=== PATIENT | female | born 1995 | race Caucasian/White ===

== ENCOUNTER 2016-10-18 05:13 | Emergency (ER) | payer OTHER ==
[~2016-10-18] VITALS: Ht 165.1 cm; Wt 89.4 kg
[2016-10-18 05:19] VITALS: BP 114/79
[2016-10-18] MEDS ORDERED: AZIT500T2 PO (05:38)
[2016-10-18] MEDS ORDERED: DEXAMETHASONE 4 MG/ML, 1ML PO ONE (06:00)
[2016-10-18] MEDS ORDERED: DEXAMETHASONE 4 MG TABLET ONE (06:26)
== END 2016-10-18 06:34 | disposition home or self-care (01) ==
LOC: ED 06:28
DX: B34.9 Viral infection, unspecified (principal)
CPT/HCPCS: 93005; 99283; J1100

== ENCOUNTER 2016-10-22 05:09 | Emergency (ER) | payer OTHER ==
[~2016-10-22] VITALS: Ht 165.1 cm; Wt 98.4 kg
[~2016-10-22 05:09] MED LIST: AZIT500T2 PO
[2016-10-22 05:10] VITALS: BP 111/77
== END 2016-10-22 06:30 | disposition home or self-care (01) ==
LOC: ED 06:21
DX: H65.03 Acute serous otitis media, bilateral (principal)
CPT/HCPCS: 70480; 99284

== ENCOUNTER 2017-04-11 20:09 | Outpatient (CLI) | payer OTHER ==
[~2017-04-11] VITALS: Ht 167.6 cm; Wt 94.0 kg
== END 2017-04-11 21:10 | disposition home or self-care (01) ==
LOC: LDOP 20:09
PROVIDERS: ATTEND Student in an Organized Health Care Education/Training Program
DX: O26.892 Other specified pregnancy related conditions, second trimester (principal); O99.342 Other mental disorders complicating pregnancy, second trimester; R10.9 Unspecified abdominal pain; G43.909 Migraine, unspecified, not intractable, without status migrainosus; F32.9 Major depressive disorder, single episode, unspecified; F41.9 Anxiety disorder, unspecified; Z3A.23 23 weeks gestation of pregnancy
CPT/HCPCS: 59025; 99211; G0463

== ENCOUNTER 2017-06-04 17:16 | Outpatient (CLI) | payer OTHER ==
[~2017-06-04] VITALS: Ht 167.6 cm; Wt 97.7 kg
[2017-06-04] MEDS ORDERED: LACTATED RINGERS 1,000 ML IV SCH (18:00)
[2017-06-04] MEDS ORDERED: ONDANSETRON 2MG/ML, 2ML IVPush PRN (18:00)
[2017-06-04] MEDS ORDERED: LACTATED RINGERS 1,000 ML IVBOLUS ONE (18:00)
[2017-06-04 18:39] VITALS: BP 115/62
[2017-06-04 18:54] LABS: MICROSCOPIC INDICATED
[2017-06-04 19:05] LABS: RAPID INFLUENZA A Negative (Negative); RAPID INFLUENZA B Negative (Negative)
== END 2017-06-04 20:50 | disposition home or self-care (01) ==
LOC: LDOP 17:16
PROVIDERS: ATTEND Student in an Organized Health Care Education/Training Program
DX: O26.893 Other specified pregnancy related conditions, third trimester (principal); R10.9 Unspecified abdominal pain; Z3A.32 32 weeks gestation of pregnancy
CPT/HCPCS: 36415; 59025; 81001; 82731; 87086; 87400; 96360; 96361; 99211; J7120; G0463

== ENCOUNTER 2017-07-13 19:24 | Outpatient (CLI) | payer OTHER ==
[~2017-07-13] VITALS: Ht 167.6 cm; Wt 100.9 kg
[~2017-07-13 19:24] MED LIST changes: +FAMO20TA7 PO; +PREN1TAB60 PO
[2017-07-13 19:32] VITALS: BP 115/80
[2017-07-13 20:10] LABS: MICROSCOPIC INDICATED
== END 2017-07-13 20:34 | disposition home or self-care (01) ==
LOC: LDOP 19:24
PROVIDERS: ATTEND Student in an Organized Health Care Education/Training Program
DX: O26.893 Other specified pregnancy related conditions, third trimester (principal); R10.9 Unspecified abdominal pain; Z3A.37 37 weeks gestation of pregnancy
CPT/HCPCS: 59025; 81001; 87086; 89060; 99211; G0463; Q0114

== ENCOUNTER 2017-07-18 20:50 | Outpatient (CLI) | payer OTHER ==
[~2017-07-18] VITALS: Ht 167.6 cm; Wt 104.1 kg
[2017-07-18] MEDS ORDERED: HYDROcodone/APAP 10/325 MG TABLET ONE (22:03)
[2017-07-18] MEDS ORDERED: HYDROcodone/APAP 10/325 MG TABLET PO ONE (22:30)
== END 2017-07-18 22:06 | disposition home or self-care (01) ==
LOC: LDOP 20:50
PROVIDERS: ATTEND Student in an Organized Health Care Education/Training Program
DX: O26.893 Other specified pregnancy related conditions, third trimester (principal); R10.9 Unspecified abdominal pain; Z3A.37 37 weeks gestation of pregnancy
CPT/HCPCS: 59025; 99211; G0463

== ENCOUNTER 2017-07-19 18:04 | Outpatient (CLI) | payer OTHER ==
[~2017-07-19] VITALS: Ht 167.6 cm; Wt 104.1 kg
[2017-07-19 18:19] VITALS: BP 118/72
[2017-07-19] MEDS ORDERED: HYDROcodone/APAP 10/325 MG TABLET PO ONE (19:00)
[2017-07-19] MEDS ORDERED: HYDROcodone/APAP 10/325 MG TABLET ONE (20:05)
== END 2017-07-19 20:45 | disposition home or self-care (01) ==
LOC: LDOP 18:04
PROVIDERS: ATTEND Student in an Organized Health Care Education/Training Program
DX: O62.9 Abnormality of forces of labor, unspecified (principal); Z3A.37 37 weeks gestation of pregnancy
CPT/HCPCS: 59025; 99211; G0463

== ENCOUNTER 2017-07-21 22:47 | Outpatient (CLI) | payer OTHER ==
[~2017-07-21] VITALS: Ht 167.6 cm; Wt 104.0 kg
== END 2017-07-22 01:01 | disposition home or self-care (01) ==
LOC: LDOP 22:47
PROVIDERS: ATTEND Student in an Organized Health Care Education/Training Program
DX: O26.893 Other specified pregnancy related conditions, third trimester (principal); R10.9 Unspecified abdominal pain; Z3A.37 37 weeks gestation of pregnancy
CPT/HCPCS: 59025; 99211; G0463

== ENCOUNTER 2017-07-26 14:25 | Outpatient (CLI) | payer OTHER ==
[~2017-07-26] VITALS: Ht 167.6 cm; Wt 103.0 kg
[2017-07-26 14:36] VITALS: BP 120/67
[2017-07-26 15:31] LABS: MICROSCOPIC INDICATED
== END 2017-07-26 16:00 | disposition home or self-care (01) ==
LOC: LDOP 14:25
PROVIDERS: ATTEND Student in an Organized Health Care Education/Training Program
DX: O26.893 Other specified pregnancy related conditions, third trimester (principal); R10.9 Unspecified abdominal pain; Z3A.00 Weeks of gestation of pregnancy not specified
CPT/HCPCS: 59025; 81001; 87086; 99211; G0463

== ENCOUNTER 2017-07-28 13:51 | Inpatient (IN) | payer OTHER, MEDICAID ==
[~2017-07-28] VITALS: Ht 167.6 cm; Wt 103.1 kg
[2017-07-28] MEDS ORDERED: D5%-LACTATED RINGERS 1,000 ML IV SCH (14:22)
[2017-07-28] MEDS ORDERED: OXYTOCIN 30U/ 0.9% NaCL 500ML 500 ML IV ONE (14:22)
[2017-07-28] MEDS ORDERED: ONDANSETRON 2MG/ML, 2ML IVPush PRN (14:30)
[2017-07-28] MEDS ORDERED: FENTANYL PF 100 MCG/2ML IV PRN (14:30)
[2017-07-28] MEDS ORDERED: SODIUM CITRATE/CITRIC ACID 30 ML UDC PO PRN (14:30)
[2017-07-28] MEDS ORDERED: FENTANYL PF 100 MCG/2ML IVPush PRN (14:30)
[2017-07-28] MEDS ORDERED: MISOPROSTOL 200 MCG TABLET ONE (14:50)
[2017-07-28] MEDS ORDERED: NEWBORN KIT ONE (14:50)
[2017-07-28] MEDS ORDERED: LIDOCAINE 1%, 20ML ONE (14:50)
[2017-07-28] MEDS ORDERED: OXYTOCIN 30U/ 0.9% NaCL 500ML 500 ML ONE (14:50)
[2017-07-28 14:52] LABS: BASOPHILS # (AUTO) 0.03 x10^3/uL (0-0.1); BASOPHILS % (AUTO) 0 % (0-1); EOSINOPHILS # (AUTO) 0.01 x10^3/uL (0-0.4); EOSINOPHILS % (AUTO) 0 % (1-7); LYMPHOCYTES # (AUTO) 1.42 x10^3/uL (1-3.4); LYMPHOCYTES % (AUTO) 11 % (22-44); MD NO; MEAN CORPUSCULAR HEMOGLOBIN 28.8 pg (27.0-34.8); MEAN CORPUSCULAR HGB CONC 33.9 g/dL (32.4-35.8); MONOCYTES # (AUTO) 0.62 x10^3/uL (0.2-0.8); MONOCYTES % (AUTO) 5 % (2-9); NEUTROPHILS # (AUTO) 11.25 x10^3/uL (1.8-6.8); NEUTROPHILS % (AUTO) 84 % (42-75); PLATELET COUNT 221 x10^3/uL (130-400); RED BLOOD COUNT 3.92 x10^6/uL (3.82-5.3); RED CELL DISTRIBUTION WIDTH 12.4 % (9.6-15.2)
[2017-07-28] MEDS: LACTATED RINGERS 1,000 ML IV SCH ×3 (15:10→18:47)
[2017-07-28 15:17] VITALS: BP 126/76
[2017-07-28] MEDS ORDERED: OXYTOCIN 30U/ 0.9% NaCL 500ML 500 ML IV PRN (16:47)
[2017-07-28] MEDS ORDERED: FENTANYL/BUPIV./NS/PF 250 ML EPIDCONT ONE (17:36)
[2017-07-28] MEDS ORDERED: CALCIUM CARBONATE 500 MG TAB.CHEW ONE (22:03)
[2017-07-29] MEDS ORDERED: FENTANYL PF 100 MCG/2ML ONE (01:55)
[2017-07-29] MEDS ORDERED: GLYCERIN ADULT SUPP PR PRN (05:30)
[2017-07-29] MEDS ORDERED: IBUPROFEN 800 MG TABLET PO PRN (05:30)
[2017-07-29] MEDS ORDERED: CARBOPROST TROMETHAMINE 250 MCG/ML, 1ML IM PRN (05:30)
[2017-07-29] MEDS ORDERED: OXYcodone/APAP 5/325MG TABLET PO PRN (05:30)
[2017-07-29] MEDS ORDERED: BISACODYL 10 MG SUPP PR PRN (05:30)
[2017-07-29] MEDS ORDERED: METHYLERGONOVINE 0.2 MG/ML IM PRN (05:30)
[2017-07-29] MEDS ORDERED: METOCLOPRAMIDE 5 MG/ML, 2ML IV PRN (05:30)
[2017-07-29] MEDS ORDERED: ONDANSETRON 2MG/ML, 2ML IV PRN (05:30)
[2017-07-29] MEDS ORDERED: MISOPROSTOL 200 MCG TABLET PR PRN (05:30)
[2017-07-29] MEDS ORDERED: ACETAMINOPHEN 325 MG TABLET PO PRN (05:30)
[2017-07-29] MEDS ORDERED: IBUPROFEN 600 MG TABLET ONE (07:06)
[2017-07-29] MEDS ORDERED: OXYcodone/APAP 5/325MG TABLET ONE (07:07)
[2017-07-29] MEDS: IBUPROFEN 600 MG TABLET PO PRN ×3 (07:10→23:06)
[2017-07-29] MEDS: OXYcodone/APAP 5/325MG TABLET PO PRN ×4 (07:10→21:18)
[2017-07-29] MEDS ORDERED: OXYTOCIN 30U/ 0.9% NaCL 500ML 500 ML ONE (07:42)
[2017-07-29] MEDS: LACTATED RINGERS 1,000 ML IV SCH (07:45)
[2017-07-29] MEDS: OXYTOCIN 30U/ 0.9% NaCL 500ML 500 ML IV SCH ×2 (07:46→15:20)
[2017-07-29 07:55] VITALS: BP 119/74
[2017-07-29] MEDS: PRENATAL VIT/IRON/FA 1 EACH TABLET PO SCH (09:00)
[2017-07-29 12:28] VITALS: BP 119/74
[2017-07-29 14:42] LABS: MD YES; MEAN CORPUSCULAR HEMOGLOBIN 28.5 pg (27.0-34.8); MEAN CORPUSCULAR HGB CONC 33.3 g/dL (32.4-35.8); MEAN CORPUSCULAR VOLUME 85.6 fL (80-100); PLATELET COUNT 202 x10^3/uL (130-400); RED BLOOD COUNT 3.69 x10^6/uL (3.82-5.3); RED CELL DISTRIBUTION WIDTH 12.6 % (9.6-15.2)
[2017-07-29 14:44] LABS: BAND#(MANUAL) 1.06 x10^3/uL; BANDS%(MANUAL) 5 % (0-7); LYMPH#(MANUAL) 1.06 x10^3/uL (1-3.4); LYMPHS% (MANUAL) 5 % (22-44); MONOS#(MANUAL) 0.85 x10^3/uL (0.3-2.7); MONOS% (MANUAL) 4 % (2-9); SEG#(MANUAL) 18.23 x10^3/uL (1.8-6.8); SEGS% (MANUAL) 86 % (42-75)
[2017-07-29 14:45] LABS: <PLATELET ESTIMATE> ADEQUATE; <PLT MORPHOLOGY> NORMAL PLT MORPH; ANISOCYTOSIS 1+; HYPOCHROMIA 1+
[2017-07-29 16:00] VITALS: BP 109/68
[2017-07-29 19:40] VITALS: BP 110/73
[2017-07-29] MEDS: CEPHALEXIN 500 MG CAPSULE PO SCH (21:18)
[2017-07-29 23:45] VITALS: BP 115/78
[2017-07-30] MEDS: OXYTOCIN 30U/ 0.9% NaCL 500ML 500 ML IV SCH (01:20)
[2017-07-30 04:11] VITALS: BP 118/77
[2017-07-30] MEDS: OXYcodone/APAP 5/325MG TABLET PO PRN ×4 (04:35→23:56)
[2017-07-30] MEDS: IBUPROFEN 600 MG TABLET PO PRN ×4 (04:35→23:55)
[2017-07-30 07:40] VITALS: BP 106/73
[2017-07-30] MEDS: CEPHALEXIN 500 MG CAPSULE PO SCH ×2 (09:36→21:12)
[2017-07-30] MEDS: DOCUSATE 100 MG CAPSULE PO PRN ×2 (09:36→21:12)
[2017-07-30] MEDS: PRENATAL VIT/IRON/FA 1 EACH TABLET PO SCH (09:36)
[2017-07-30 19:10] VITALS: BP 111/72
[2017-07-31] MEDS: OXYcodone/APAP 5/325MG TABLET PO PRN ×2 (06:38→14:54)
[2017-07-31] MEDS: IBUPROFEN 600 MG TABLET PO PRN ×2 (06:38→14:54)
[2017-07-31 07:25] VITALS: BP 126/80
[2017-07-31] MEDS: PRENATAL VIT/IRON/FA 1 EACH TABLET PO SCH (09:51)
[2017-07-31] MEDS: CEPHALEXIN 500 MG CAPSULE PO SCH (09:51)
[2017-07-31] MEDS ORDERED: IBUP-1222 PO (10:54)
== END 2017-07-31 16:07 | disposition home or self-care (01) | DRG 775 ==
LOC: LDOP 13:51 → LDIP 14:32 → 2NW 07-29 07:54
PROVIDERS: ADMIT Student in an Organized Health Care Education/Training Program; ATTEND Student in an Organized Health Care Education/Training Program
PROC: 0KQM0ZZ Repair Perineum Muscle, Open Approach (ICD-10-PCS; principal; 2017-07-28)
PROC: 10E0XZZ Delivery of Products of Conception, External Approach (ICD-10-PCS; 2017-07-28)
PROC: 3E0R3BZ Introduction of Anesthetic Agent into Spinal Canal, Percutaneous Approach (ICD-10-PCS; 2017-07-28)
PROC: 00HU33Z Insertion of Infusion Device into Spinal Canal, Percutaneous Approach (ICD-10-PCS; 2017-07-28)
DX: O70.1 Second degree perineal laceration during delivery (principal); Z37.0 Single live birth; O99.344 Other mental disorders complicating childbirth; F60.3 Borderline personality disorder; Z3A.38 38 weeks gestation of pregnancy; Z90.49 Acquired absence of other specified parts of digestive tract
CPT/HCPCS: 36415; 85025; 86850; 86900; J3490; J2590; J3010; J7120

== ENCOUNTER 2018-08-03 18:57 | Emergency (ER) | payer OTHER ==
[~2018-08-03] VITALS: Ht 170.2 cm; Wt 95.3 kg
[~2018-08-03 18:57] MED LIST changes: +IBUP-1222 PO; +SEROQUEL
--- NOTE | 2018-08-03 19:29 | NUR ---
FIRST CONTACT WITH PT. PT C/O COUGH/SORE THROAT/BILATERAL ABD PAIN/DIARRHEA X 2 DAYS. PT'S FRIEND AT BEDSIDE. BP/SPO2 MONITORS IN PLACE. CALL LIGHT WITHIN REACH. AWAITING EDMD ASSESSMENT AT THIS TIME.
--- NOTE | 2018-08-03 20:34 | NUR ---
PT RESTING IN [facility]. PT'S AOX4. RESPS EVEN AND UNLABORED.
[2018-08-03 20:36] LABS: RAPID INFLUENZA A Negative (Negative); RAPID INFLUENZA B Negative (Negative)
--- NOTE | 2018-08-03 21:25 | NUR ---
PT RESTING IN [facility]. EDMD AT BEDSIDE TO EXPLAIN ALL RESULTS. AWAITING DC NOW.
[2018-08-03] MEDS ORDERED: ACETAMINOPHEN 325 MG TABLET ONE (21:27)
[2018-08-03] MEDS ORDERED: ACETAMINOPHEN 325 MG TABLET PO ONE (21:30)
--- NOTE | 2018-08-03 21:30 | NUR ---
PT MEDICATED PER EMAR. PT TOLERATED WELL. PT'S AOX4. RESPS EVEN AND UNLABORED.
[2018-08-03 21:41] VITALS: BP 119/77
--- NOTE | 2018-08-03 21:49 | NUR ---
PT GIVEN DC INSTRUCTIONS. PT AMB TO DC WITH STEADY GAIT. NO ACUTE DISTRESS AT DC.
== END 2018-08-03 21:43 | disposition home or self-care (01) ==
LOC: ED 20:33
DX: J06.9 Acute upper respiratory infection, unspecified (principal); B34.9 Viral infection, unspecified
CPT/HCPCS: 71045; 87400; 99284